=== PATIENT | female | born 1960 | race Caucasian/White ===

== ENCOUNTER 2017-01-28 12:48 | Inpatient (IN) | payer BC ==
[~2017-01-28] VITALS: Ht 165.1 cm; Wt 129.7 kg
[2017-01-28] MEDS ORDERED: SODIUM CHLORIDE 0.9% 1,000ML IVBOLUS ONE (14:00)
[2017-01-28] MEDS ORDERED: PIPERACILLIN/TAZO/PMX 3.375GM 50 ML IVPB ONE (14:00)
[2017-01-28] MEDS ORDERED: SODIUM CHLORIDE FLUSH 10ML SYR IVF ONE (14:00)
[2017-01-28] MEDS ORDERED: ONDANSETRON 2MG/ML, 2ML IVPush ONE (14:00)
[2017-01-28] MEDS ORDERED: VANCOMYCIN PER PHARMACY MC ONE (14:00)
[2017-01-28] MEDS ORDERED: LIDOCAINE 1%-EPI 1:100K, 20ML SQ ONE (14:00)
[2017-01-28 14:22] LABS: PH, VENOUS 7.332 pH (7.320-7.420)
[2017-01-28] MEDS ORDERED: VANCOMYCIN 1,700 MG in SODIUM CHLORIDE 0.9% 250 ML IV ONE (14:30)
[2017-01-28] MEDS ORDERED: MORPHINE SULFATE 4 MG/ML, 1ML ONE ×2 (14:35→17:43)
[2017-01-28] MEDS ORDERED: PIPERACILLIN/TAZO/PMX 3.375GM 50 ML ONE (14:35)
[2017-01-28] MEDS ORDERED: ONDANSETRON 2MG/ML, 2ML ONE (14:35)
[2017-01-28] MEDS: MORPHINE SULFATE 4 MG/ML, 1ML IVPush PRN ×3 (14:49→22:38)
[2017-01-28] MEDS ORDERED: SODIUM CHLORIDE 0.9%, 500ML IVBOLUS ONE (15:00)
[2017-01-28 15:03] LABS: BLOOD UREA NITROGEN 27 mg/dL (7-18)
[2017-01-28 15:08] LABS: ASPARTATE AMINO TRANSFERASE 10 U/L (15-37)
[2017-01-28] MEDS ORDERED: INSULIN REGULAR 100 UNITS/ML, 3ML VIAL IVPush ONE (15:30)
[2017-01-28] MEDS ORDERED: INSULIN REGULAR 100 UNITS/ML, 3ML VIAL SQ-INSULIN ONE (15:30)
[2017-01-28] MEDS ORDERED: OMNIPAQUE 350 MG/ML, 100ML BOTTLE ONE (15:47)
[2017-01-28] MEDS ORDERED: INSULIN REGULAR 100 UNITS/ML, 3ML VIAL ONE (16:43)
[2017-01-28] MEDS ORDERED: D5%-0.45NACL+KCL 20MEQ 1,000 ML IV SCH (17:33)
[2017-01-28] MEDS ORDERED: LABETALOL 5MG/ML, 20ML IV PRN (18:00)
[2017-01-28] MEDS ORDERED: GLUCAGON 1 MG IM PRN (18:00)
[2017-01-28] MEDS ORDERED: GUAIFENESIN/DM 200-20MG, 10ML UDC PO PRN (18:00)
[2017-01-28] MEDS ORDERED: ONDANSETRON 2MG/ML, 2ML IVP PRN (18:00)
[2017-01-28] MEDS ORDERED: ONDANSETRON ODT 4 MG PO PRN (18:00)
[2017-01-28] MEDS ORDERED: DEXTROSE 4 GM TAB.CHEW PO PRN (18:00)
[2017-01-28] MEDS ORDERED: DEXTROSE 50%, 50ML SYRINGE IVPush PRN (18:00)
[2017-01-28] MEDS ORDERED: VANCOMYCIN PER PHARMACY MC PRN (18:00)
[2017-01-28] MEDS ORDERED: POLYETHYLENE GLYCOL 17 GM PACKET PO PRN (18:00)
[2017-01-28 18:16] LABS: BLOOD UREA NITROGEN 23 mg/dL (7-18)
[2017-01-28] MEDS: SODIUM CHLORIDE 0.9% 1,000 ML IV SCH (18:33)
[2017-01-28 18:44] VITALS: BP 131/84
[2017-01-28] MEDS ORDERED: PHARMACOKINETIC MONITORING MC PRN (19:00)
[2017-01-28] MEDS ORDERED: PHARMACOKINETIC CONSULTATION MC ONE (19:00)
[2017-01-28] MEDS: VANCOMYCIN 2,000 MG in SODIUM CHLORIDE 0.9% 500 ML IV SCH ×2 (20:21→22:27)
[2017-01-28] MEDS: ENOXAPARIN 40 MG/0.4 ML SQ SCH (20:28)
[2017-01-28] MEDS: PIPERACILLIN/TAZO/PMX 3.375GM 50 ML IV SCH (20:28)
[2017-01-28] MEDS: SODIUM CHLORIDE FLUSH 10ML SYR IVF SCH (22:27)
[2017-01-28] MEDS: FAMOTIDINE 20 MG/2 ML IV SCH (22:27)
[2017-01-28] MEDS: INSULIN ASPART 100 UNITS/ML, PEN SQ-INSULIN SCH (22:28)
[2017-01-29] MEDS: MORPHINE SULFATE 4 MG/ML, 1ML IVPush PRN ×6 (02:23→21:29)
[2017-01-29] MEDS: PIPERACILLIN/TAZO/PMX 3.375GM 50 ML IV SCH ×4 (02:23→20:15)
[2017-01-29 03:41] VITALS: BP 144/75
[2017-01-29] MEDS: SODIUM CHLORIDE 0.9% 1,000 ML IV SCH ×3 (04:35→22:30)
[2017-01-29 06:25] LABS: ASPARTATE AMINO TRANSFERASE 7 U/L (15-37); BLOOD UREA NITROGEN 19 mg/dL (7-18)
[2017-01-29 07:31] VITALS: BP 162/81
[2017-01-29] MEDS ORDERED: INSULIN DETEMIR 100 UNITS/ML, PEN SQ-INSULIN SCH (08:00)
[2017-01-29] MEDS: INSULIN ASPART 100 UNITS/ML, PEN SQ-INSULIN SCH ×4 (08:19→21:12)
[2017-01-29] MEDS ORDERED: MAGNESIUM SULFATE PMX 2GM/50ML 50 ML IV ONE (08:30)
[2017-01-29] MEDS: FAMOTIDINE 20 MG/2 ML IV SCH ×2 (09:29→20:14)
[2017-01-29] MEDS: SENNA/DOCUSATE TABLET PO SCH (09:29)
[2017-01-29] MEDS: INSULIN DETEMIR 100 UNITS/ML, PEN SQ-INSULIN SCH ×2 (09:29→21:11)
[2017-01-29] MEDS: SODIUM CHLORIDE FLUSH 10ML SYR IVF SCH ×2 (09:30→21:10)
[2017-01-29] MEDS: VANCOMYCIN 2,000 MG in SODIUM CHLORIDE 0.9% 500 ML IV SCH ×2 (11:54→22:30)
[2017-01-29 12:45] VITALS: BP 140/81
[2017-01-29] MEDS: ENOXAPARIN 40 MG/0.4 ML SQ SCH (17:57)
[2017-01-29 19:41] VITALS: BP 160/83
[2017-01-29] MEDS: ACETAMINOPHEN 325 MG TABLET PO PRN (20:15)
[2017-01-30 01:58] VITALS: BP 140/83
[2017-01-30] MEDS: PIPERACILLIN/TAZO/PMX 3.375GM 50 ML IV SCH ×4 (02:01→19:25)
[2017-01-30 06:39] VITALS: BP 134/79
[2017-01-30] MEDS: MORPHINE SULFATE 4 MG/ML, 1ML IVPush PRN ×5 (08:12→23:18)
[2017-01-30] MEDS: ACETAMINOPHEN 325 MG TABLET PO PRN (08:12)
[2017-01-30] MEDS: SODIUM CHLORIDE 0.9% 1,000 ML IV SCH ×2 (08:12→21:20)
[2017-01-30] MEDS: FAMOTIDINE 20 MG/2 ML IV SCH ×2 (08:13→21:00)
[2017-01-30] MEDS: SENNA/DOCUSATE TABLET PO SCH (08:13)
[2017-01-30] MEDS: INSULIN ASPART 100 UNITS/ML, PEN SQ-INSULIN SCH ×4 (08:13→21:19)
[2017-01-30] MEDS: INSULIN DETEMIR 100 UNITS/ML, PEN SQ-INSULIN SCH ×2 (08:14→21:19)
[2017-01-30] MEDS: SODIUM CHLORIDE FLUSH 10ML SYR IVF SCH ×2 (08:14→21:20)
[2017-01-30 09:33] LABS: ASPARTATE AMINO TRANSFERASE 15 U/L (15-37); BLOOD UREA NITROGEN 14 mg/dL (7-18)
[2017-01-30 09:40] LABS: C-REACTIVE PROTEIN, QUANT > 19.00 mg/dL (0.02-0.49)
[2017-01-30] MEDS: VANCOMYCIN 2,000 MG in SODIUM CHLORIDE 0.9% 500 ML IV SCH (11:35)
[2017-01-30 13:53] VITALS: BP 149/61
[2017-01-30] MEDS: LINEZOLID PMX 600MG/300ML 300 ML IV SCH (15:21)
[2017-01-30] MEDS: ENOXAPARIN 40 MG/0.4 ML SQ SCH (16:34)
[2017-01-30 18:28] LABS: PATH.CAST-FLAG NOT PRESENT; SPERM-FLAG NOT PRESENT; SRC-FLAG NOT PRESENT; XTAL-FLAG NOT PRESENT; YLC-FLAG NOT PRESENT
[2017-01-30 20:38] VITALS: BP 159/84
[2017-01-31] MEDS: PIPERACILLIN/TAZO/PMX 3.375GM 50 ML IV SCH ×2 (02:17→08:03)
[2017-01-31] MEDS: MORPHINE SULFATE 4 MG/ML, 1ML IVPush PRN ×6 (02:18→21:18)
[2017-01-31 02:27] VITALS: BP 140/85
[2017-01-31] MEDS: LINEZOLID PMX 600MG/300ML 300 ML IV SCH (03:32)
[2017-01-31] MEDS: SODIUM CHLORIDE 0.9% 1,000 ML IV SCH ×5 (03:32→21:17)
[2017-01-31 05:37] LABS: BLOOD UREA NITROGEN 17 mg/dL (7-18)
[2017-01-31 05:41] LABS: ASPARTATE AMINO TRANSFERASE 17 U/L (15-37)
[2017-01-31 07:00] VITALS: BP 128/83
[2017-01-31] MEDS: FAMOTIDINE 20 MG/2 ML IV SCH ×2 (08:02→21:17)
[2017-01-31] MEDS: SENNA/DOCUSATE TABLET PO SCH (08:03)
[2017-01-31] MEDS: INSULIN ASPART 100 UNITS/ML, PEN SQ-INSULIN SCH ×4 (08:03→21:17)
[2017-01-31] MEDS: INSULIN DETEMIR 100 UNITS/ML, PEN SQ-INSULIN SCH ×2 (08:24→21:16)
[2017-01-31] MEDS ORDERED: PHARMACY MAY ADJ FOR RENAL FX MC PRN (09:00)
[2017-01-31] MEDS: SODIUM CHLORIDE FLUSH 10ML SYR IVF SCH ×2 (09:00→21:17)
[2017-01-31 12:35] VITALS: BP 138/90
[2017-01-31] MEDS: CEFTAROLINE 300 MG in SODIUM CHLORIDE 0.9% 100 ML IV SCH (13:55)
[2017-01-31] MEDS ORDERED: ERGOCALCIFEROL 50,000 UNIT CAPSULE PO SCH (17:00)
[2017-01-31 17:06] LABS: HGB A1C 14.8 %Hb (.)
[2017-01-31] MEDS ORDERED: ENOXAPARIN 30 MG/0.3 ML SQ SCH (18:00)
[2017-01-31 20:13] VITALS: BP 159/84
[2017-02-01] MEDS: CEFTAROLINE 300 MG in SODIUM CHLORIDE 0.9% 100 ML IV SCH ×2 (00:37→12:45)
[2017-02-01] MEDS: MORPHINE SULFATE 4 MG/ML, 1ML IVPush PRN ×4 (00:37→16:55)
[2017-02-01 02:32] VITALS: BP 167/99
[2017-02-01] MEDS: SODIUM CHLORIDE 0.9% 1,000 ML IV SCH ×4 (06:19→22:35)
[2017-02-01 06:52] VITALS: BP 147/86
[2017-02-01] MEDS: INSULIN ASPART 100 UNITS/ML, PEN SQ-INSULIN SCH ×4 (07:57→21:06)
[2017-02-01] MEDS: INSULIN DETEMIR 100 UNITS/ML, PEN SQ-INSULIN SCH ×2 (08:44→21:06)
[2017-02-01] MEDS: SODIUM CHLORIDE FLUSH 10ML SYR IVF SCH ×2 (08:44→21:05)
[2017-02-01] MEDS: SENNA/DOCUSATE TABLET PO SCH (08:45)
[2017-02-01] MEDS ORDERED: FAMOTIDINE 20 MG TABLET PO SCH (09:00)
[2017-02-01 10:32] LABS: ASPARTATE AMINO TRANSFERASE 11 U/L (15-37); BLOOD UREA NITROGEN 16 mg/dL (7-18)
[2017-02-01] MEDS: HYDROcodone/APAP 5/325 TABLET PO PRN ×2 (12:45→21:05)
[2017-02-01 12:53] VITALS: BP 155/84
[2017-02-01 20:03] VITALS: BP 134/78
[2017-02-02] MEDS: CEFTAROLINE 300 MG in SODIUM CHLORIDE 0.9% 100 ML IV SCH ×2 (02:21→14:39)
[2017-02-02] MEDS: HYDROcodone/APAP 5/325 TABLET PO PRN ×4 (02:24→23:07)
[2017-02-02] MEDS: SODIUM CHLORIDE 0.9% 1,000 ML IV SCH ×4 (02:24→23:30)
[2017-02-02 02:38] VITALS: BP 148/74
[2017-02-02 05:30] LABS: ASPARTATE AMINO TRANSFERASE 9 U/L (15-37); BLOOD UREA NITROGEN 16 mg/dL (7-18)
[2017-02-02] MEDS: MORPHINE SULFATE 4 MG/ML, 1ML IVPush PRN ×3 (06:04→16:26)
[2017-02-02 07:31] VITALS: BP 146/75
[2017-02-02] MEDS: INSULIN DETEMIR 100 UNITS/ML, PEN SQ-INSULIN SCH ×2 (08:33→23:08)
[2017-02-02] MEDS: INSULIN ASPART 100 UNITS/ML, PEN SQ-INSULIN SCH ×4 (08:34→23:08)
[2017-02-02] MEDS: SODIUM CHLORIDE FLUSH 10ML SYR IVF SCH ×2 (08:38→23:09)
[2017-02-02] MEDS: SENNA/DOCUSATE TABLET PO SCH (08:44)
[2017-02-02] MEDS: FAMOTIDINE 20 MG TABLET PO SCH (08:44)
[2017-02-02] MEDS: HEPARIN 5,000 UNITS/ML, 1ML SQ SCH ×2 (10:34→18:11)
[2017-02-02] MEDS: LIDOCAINE/PRILOCAINE CRM W/TEG 5GM TP PRN (11:26)
[2017-02-02 14:43] VITALS: BP 132/71
[2017-02-02] MEDS: AMPICILLIN/SULBACTAM 3 GM in SODIUM CHLORIDE 0.9% 100 ML IV SCH ×2 (16:07→23:30)
[2017-02-02 20:40] VITALS: BP 132/71
[2017-02-03] MEDS: HEPARIN 5,000 UNITS/ML, 1ML SQ SCH ×3 (03:29→20:04)
[2017-02-03] MEDS: HYDROcodone/APAP 5/325 TABLET PO PRN ×5 (03:42→20:04)
[2017-02-03 04:12] VITALS: BP 142/69
[2017-02-03] MEDS: SODIUM CHLORIDE 0.9% 1,000 ML IV SCH ×3 (05:20→15:03)
[2017-02-03 06:49] LABS: BLOOD UREA NITROGEN 18 mg/dL (7-18); TOTAL IRON BINDING CAPACITY 114 mcg/dL (250-450)
[2017-02-03] MEDS: FAMOTIDINE 20 MG TABLET PO SCH (07:46)
[2017-02-03] MEDS: INSULIN ASPART 100 UNITS/ML, PEN SQ-INSULIN SCH ×4 (07:47→21:00)
[2017-02-03] MEDS: ERGOCALCIFEROL 50,000 UNIT CAPSULE PO SCH (07:47)
[2017-02-03] MEDS: SODIUM CHLORIDE FLUSH 10ML SYR IVF SCH ×2 (07:47→21:28)
[2017-02-03] MEDS: SENNA/DOCUSATE TABLET PO SCH (07:48)
[2017-02-03] MEDS: INSULIN DETEMIR 100 UNITS/ML, PEN SQ-INSULIN SCH ×2 (07:48→20:21)
[2017-02-03 08:09] VITALS: BP 158/76
[2017-02-03] MEDS ORDERED: ALBUMIN HUMAN 25% 100 ML IV ONE (08:30)
[2017-02-03] MEDS: AMPICILLIN/SULBACTAM 3 GM in SODIUM CHLORIDE 0.9% 100 ML IV SCH ×2 (08:34→20:00)
[2017-02-03 12:35] VITALS: BP 144/87
[2017-02-03] MEDS: MORPHINE SULFATE 4 MG/ML, 1ML IVPush PRN (16:36)
[2017-02-03 19:00] VITALS: BP 134/80
[2017-02-04] MEDS: HYDROcodone/APAP 5/325 TABLET PO PRN ×6 (00:32→22:08)
[2017-02-04] MEDS: SODIUM CHLORIDE 0.9% 1,000 ML IV SCH ×4 (01:20→17:00)
[2017-02-04] MEDS: MORPHINE SULFATE 4 MG/ML, 1ML IVPush PRN ×2 (01:32→10:03)
[2017-02-04 01:43] VITALS: BP 163/84
[2017-02-04] MEDS: HEPARIN 5,000 UNITS/ML, 1ML SQ SCH ×3 (04:30→21:21)
[2017-02-04 06:30] LABS: ASPARTATE AMINO TRANSFERASE 14 U/L (15-37); BLOOD UREA NITROGEN 20 mg/dL (7-18)
[2017-02-04 06:39] VITALS: BP 149/78
[2017-02-04] MEDS: INSULIN ASPART 100 UNITS/ML, PEN SQ-INSULIN SCH ×4 (07:00→21:00)
[2017-02-04] MEDS: AMPICILLIN/SULBACTAM 3 GM in SODIUM CHLORIDE 0.9% 100 ML IV SCH ×2 (08:04→21:18)
[2017-02-04] MEDS: INSULIN DETEMIR 100 UNITS/ML, PEN SQ-INSULIN SCH ×2 (08:06→21:31)
[2017-02-04] MEDS: SODIUM CHLORIDE FLUSH 10ML SYR IVF SCH ×2 (09:00→21:22)
[2017-02-04] MEDS: SENNA/DOCUSATE TABLET PO SCH (09:00)
[2017-02-04] MEDS: LIDOCAINE/PRILOCAINE CRM W/TEG 5GM TP PRN (10:03)
[2017-02-04] MEDS: FAMOTIDINE 20 MG TABLET PO SCH (10:10)
[2017-02-04 12:45] VITALS: BP 174/82
[2017-02-04 21:04] VITALS: BP 167/85
[2017-02-05] MEDS: SODIUM CHLORIDE 0.9% 1,000 ML IV SCH ×3 (02:45→18:28)
[2017-02-05] MEDS: HYDROcodone/APAP 5/325 TABLET PO PRN ×5 (02:45→22:28)
[2017-02-05 02:50] VITALS: BP 193/107
[2017-02-05 03:40] VITALS: BP 187/101
[2017-02-05] MEDS: LABETALOL 20 MG/4 ML IV PRN ×2 (03:45→22:51)
[2017-02-05] MEDS: HEPARIN 5,000 UNITS/ML, 1ML SQ SCH ×3 (04:07→20:37)
[2017-02-05 06:10] LABS: BLOOD UREA NITROGEN 22 mg/dL (7-18)
[2017-02-05 06:20] LABS: ASPARTATE AMINO TRANSFERASE 19 U/L (15-37)
[2017-02-05] MEDS: INSULIN ASPART 100 UNITS/ML, PEN SQ-INSULIN SCH ×4 (07:00→20:34)
[2017-02-05] MEDS: INSULIN DETEMIR 100 UNITS/ML, PEN SQ-INSULIN SCH ×2 (08:26→20:49)
[2017-02-05] MEDS: AMPICILLIN/SULBACTAM 3 GM in SODIUM CHLORIDE 0.9% 100 ML IV SCH ×2 (08:26→20:15)
[2017-02-05] MEDS: SENNA/DOCUSATE TABLET PO SCH (09:00)
[2017-02-05] MEDS: FAMOTIDINE 20 MG TABLET PO SCH (09:00)
[2017-02-05] MEDS: SODIUM CHLORIDE FLUSH 10ML SYR IVF SCH ×2 (11:51→20:35)
[2017-02-05 14:12] VITALS: BP 184/85
[2017-02-05] MEDS: MORPHINE SULFATE 4 MG/ML, 1ML IVPush PRN (16:31)
[2017-02-05] MEDS: LOPERAMIDE 2 MG CAPSULE PO PRN (18:26)
[2017-02-05 20:16] VITALS: BP 185/83
[2017-02-05] MEDS: LIDOCAINE/PRILOCAINE CRM W/TEG 5GM TP PRN (20:38)
[2017-02-05 22:23] VITALS: BP 182/81
[2017-02-06] MEDS: SODIUM CHLORIDE 0.9% 1,000 ML IV SCH ×3 (03:21→18:49)
[2017-02-06 03:22] VITALS: BP 171/81
[2017-02-06] MEDS: HYDROcodone/APAP 5/325 TABLET PO PRN ×5 (04:31→20:39)
[2017-02-06] MEDS: HEPARIN 5,000 UNITS/ML, 1ML SQ SCH ×3 (04:31→20:32)
[2017-02-06 05:27] LABS: PATH.CAST-FLAG NOT PRESENT; SPERM-FLAG NOT PRESENT; SRC-FLAG NOT PRESENT; XTAL-FLAG NOT PRESENT; YLC-FLAG NOT PRESENT
[2017-02-06] MEDS: INSULIN ASPART 100 UNITS/ML, PEN SQ-INSULIN SCH ×4 (07:00→20:35)
[2017-02-06 07:35] VITALS: BP 181/78
[2017-02-06] MEDS: AMPICILLIN/SULBACTAM 3 GM in SODIUM CHLORIDE 0.9% 100 ML IV SCH ×2 (08:19→20:10)
[2017-02-06] MEDS: ERGOCALCIFEROL 50,000 UNIT CAPSULE PO SCH (08:21)
[2017-02-06] MEDS: SODIUM CHLORIDE FLUSH 10ML SYR IVF SCH ×2 (08:21→20:11)
[2017-02-06] MEDS: FAMOTIDINE 20 MG TABLET PO SCH (08:21)
[2017-02-06] MEDS: INSULIN DETEMIR 100 UNITS/ML, PEN SQ-INSULIN SCH ×2 (08:26→21:47)
[2017-02-06] MEDS: LABETALOL 20 MG/4 ML IV PRN ×2 (08:28→21:46)
[2017-02-06 09:51] LABS: BLOOD UREA NITROGEN 25 mg/dL (7-18)
[2017-02-06 11:00] VITALS: BP 174/80
[2017-02-06 13:08] VITALS: BP 182/93
[2017-02-06] MEDS ORDERED: AMLODIPINE 5 MG TABLET PO ONE (14:00)
[2017-02-06] MEDS: LOPERAMIDE 2 MG CAPSULE PO PRN (14:49)
[2017-02-06 15:43] VITALS: BP 167/85
[2017-02-06] MEDS: LIDOCAINE/PRILOCAINE CRM W/TEG 5GM TP PRN ×2 (16:49→20:41)
[2017-02-06 21:45] VITALS: BP 182/103
[2017-02-07] MEDS: SODIUM CHLORIDE 0.9% 1,000 ML IV SCH ×2 (02:10→10:53)
[2017-02-07 02:13] VITALS: BP 177/89
[2017-02-07] MEDS: HYDROcodone/APAP 5/325 TABLET PO PRN ×5 (04:07→20:27)
[2017-02-07] MEDS: HEPARIN 5,000 UNITS/ML, 1ML SQ SCH ×3 (04:07→20:21)
[2017-02-07] MEDS: INSULIN ASPART 100 UNITS/ML, PEN SQ-INSULIN SCH ×4 (06:45→20:21)
[2017-02-07 07:12] VITALS: BP 173/83
[2017-02-07] MEDS: AMPICILLIN/SULBACTAM 3 GM in SODIUM CHLORIDE 0.9% 100 ML IV SCH ×2 (08:20→20:20)
[2017-02-07] MEDS: SODIUM CHLORIDE FLUSH 10ML SYR IVF SCH ×2 (08:21→20:21)
[2017-02-07] MEDS: INSULIN DETEMIR 100 UNITS/ML, PEN SQ-INSULIN SCH ×2 (08:21→20:40)
[2017-02-07] MEDS: FAMOTIDINE 20 MG TABLET PO SCH (08:22)
[2017-02-07] MEDS ORDERED: AMLODIPINE 5 MG TABLET PO SCH (09:00)
[2017-02-07] MEDS: LOPERAMIDE 2 MG CAPSULE PO PRN (10:54)
[2017-02-07 13:37] VITALS: BP 169/82
[2017-02-07 19:52] VITALS: BP 175/82
[2017-02-07] MEDS: AMLODIPINE 5 MG TABLET PO SCH (20:20)
[2017-02-07] MEDS: LIDOCAINE/PRILOCAINE CRM W/TEG 5GM TP PRN (20:27)
[2017-02-07] MEDS ORDERED: SODIUM CHLORIDE 0.9% 1,000 ML IV SCH (22:00)
[2017-02-08] MEDS: HYDROcodone/APAP 5/325 TABLET PO PRN ×6 (00:48→22:46)
[2017-02-08 02:26] VITALS: BP 176/84
[2017-02-08] MEDS: HEPARIN 5,000 UNITS/ML, 1ML SQ SCH ×3 (04:32→21:09)
[2017-02-08] MEDS: INSULIN ASPART 100 UNITS/ML, PEN SQ-INSULIN SCH ×4 (06:32→21:00)
[2017-02-08 06:54] VITALS: BP 158/80
[2017-02-08] MEDS ORDERED: SODIUM CHLORIDE 0.9% 1,000 ML IV SCH (08:13)
[2017-02-08] MEDS: FAMOTIDINE 20 MG TABLET PO SCH (09:17)
[2017-02-08] MEDS: AMLODIPINE 5 MG TABLET PO SCH ×2 (09:17→21:11)
[2017-02-08] MEDS: AMPICILLIN/SULBACTAM 3 GM in SODIUM CHLORIDE 0.9% 100 ML IV SCH ×2 (09:17→21:09)
[2017-02-08] MEDS: INSULIN DETEMIR 100 UNITS/ML, PEN SQ-INSULIN SCH ×2 (09:18→21:56)
[2017-02-08] MEDS: LOPERAMIDE 2 MG CAPSULE PO PRN (09:19)
[2017-02-08] MEDS: SODIUM CHLORIDE FLUSH 10ML SYR IVF SCH ×2 (09:42→21:00)
[2017-02-08 11:21] LABS: BLOOD UREA NITROGEN 23 mg/dL (7-18)
[2017-02-08 14:18] VITALS: BP 183/97
[2017-02-08] MEDS: LABETALOL 20 MG/4 ML IV PRN (14:46)
[2017-02-08 15:14] VITALS: BP 162/80
[2017-02-08] MEDS ORDERED: CALCIUM CARBONATE 500 MG TAB.CHEW PO PRN (15:30)
[2017-02-08] MEDS ORDERED: ALBUMIN HUMAN 25% 100 ML IV SCH (15:30)
[2017-02-08] MEDS ORDERED: FUROSEMIDE 20 MG/2 ML IV ONE (16:00)
[2017-02-08] MEDS: CALCIUM CARBONATE 500 MG TAB.CHEW PO SCH ×2 (16:46→21:11)
[2017-02-08 19:56] VITALS: BP 179/96
[2017-02-08 21:06] VITALS: BP 169/76
[2017-02-08] MEDS: LIDOCAINE/PRILOCAINE CRM W/TEG 5GM TP PRN (21:58)
[2017-02-09 01:55] VITALS: BP 157/79
[2017-02-09] MEDS: HEPARIN 5,000 UNITS/ML, 1ML SQ SCH ×3 (05:02→20:47)
[2017-02-09] MEDS: HYDROcodone/APAP 5/325 TABLET PO PRN ×5 (05:14→21:42)
[2017-02-09 06:01] LABS: BLOOD UREA NITROGEN 24 mg/dL (7-18)
[2017-02-09 06:09] LABS: ASPARTATE AMINO TRANSFERASE 11 U/L (15-37)
[2017-02-09] MEDS: INSULIN ASPART 100 UNITS/ML, PEN SQ-INSULIN SCH ×4 (06:23→20:48)
[2017-02-09 07:34] VITALS: BP 172/89
[2017-02-09] MEDS: AMPICILLIN/SULBACTAM 3 GM in SODIUM CHLORIDE 0.9% 100 ML IV SCH ×2 (07:53→20:47)
[2017-02-09] MEDS: SODIUM CHLORIDE FLUSH 10ML SYR IVF SCH ×2 (07:59→20:47)
[2017-02-09] MEDS: INSULIN DETEMIR 100 UNITS/ML, PEN SQ-INSULIN SCH ×2 (08:00→20:48)
[2017-02-09] MEDS: FAMOTIDINE 20 MG TABLET PO SCH (08:01)
[2017-02-09] MEDS: AMLODIPINE 5 MG TABLET PO SCH ×2 (08:01→20:47)
[2017-02-09] MEDS: CALCIUM CARBONATE 500 MG TAB.CHEW PO SCH (08:01)
[2017-02-09] MEDS: ERGOCALCIFEROL 50,000 UNIT CAPSULE PO SCH (08:01)
[2017-02-09] MEDS: LOPERAMIDE 2 MG CAPSULE PO PRN (08:04)
[2017-02-09] MEDS ORDERED: ALBUMIN HUMAN 25% 100 ML IV ONE (10:00)
[2017-02-09] MEDS: FUROSEMIDE 20 MG/2 ML IV SCH (12:55)
[2017-02-09 13:15] VITALS: BP 157/79
[2017-02-09 20:04] VITALS: BP 188/88
[2017-02-09] MEDS: CALCIUM CARBONATE 500 MG TAB.CHEW PO PRN (20:56)
[2017-02-09] MEDS: LIDOCAINE/PRILOCAINE CRM W/TEG 5GM TP PRN (21:42)
[2017-02-09] MEDS: LABETALOL 20 MG/4 ML IV PRN (21:50)
[2017-02-09 23:17] VITALS: BP 154/80
[2017-02-10 04:36] VITALS: BP 166/79
[2017-02-10] MEDS: HYDROcodone/APAP 5/325 TABLET PO PRN ×4 (04:41→20:15)
[2017-02-10] MEDS: HEPARIN 5,000 UNITS/ML, 1ML SQ SCH ×3 (04:41→20:14)
[2017-02-10] MEDS: LOPERAMIDE 2 MG CAPSULE PO PRN (04:57)
[2017-02-10 05:52] LABS: BLOOD UREA NITROGEN 23 mg/dL (7-18)
[2017-02-10] MEDS: INSULIN ASPART 100 UNITS/ML, PEN SQ-INSULIN SCH ×4 (07:51→21:00)
[2017-02-10 07:55] VITALS: BP 169/77
[2017-02-10] MEDS: AMPICILLIN/SULBACTAM 3 GM in SODIUM CHLORIDE 0.9% 100 ML IV SCH ×2 (09:41→20:15)
[2017-02-10] MEDS: INSULIN DETEMIR 100 UNITS/ML, PEN SQ-INSULIN SCH ×2 (09:42→20:14)
[2017-02-10] MEDS: SODIUM CHLORIDE FLUSH 10ML SYR IVF SCH ×2 (09:42→20:17)
[2017-02-10] MEDS: AMLODIPINE 5 MG TABLET PO SCH ×2 (09:47→22:08)
[2017-02-10] MEDS: ALBUMIN HUMAN 25% 100 ML IV SCH (11:08)
[2017-02-10] MEDS: FUROSEMIDE 20 MG/2 ML IV SCH (12:35)
[2017-02-10] MEDS: LIDOCAINE/PRILOCAINE CRM W/TEG 5GM TP PRN (14:19)
[2017-02-10 15:24] VITALS: BP 169/80
[2017-02-10 19:16] VITALS: BP 171/85
[2017-02-10] MEDS: CALCIUM CARBONATE 500 MG TAB.CHEW PO PRN (20:15)
[2017-02-10] MEDS: ERTAPENEM 0.5 GM in SODIUM CHLORIDE 0.9% 50 ML IV SCH (22:09)
[2017-02-11] MEDS: HYDROcodone/APAP 5/325 TABLET PO PRN ×6 (00:44→23:58)
[2017-02-11 01:38] VITALS: BP_SYST 177; BP_SYST 178; BP_DIAS 86; BP_DIAS 87
[2017-02-11] MEDS: HEPARIN 5,000 UNITS/ML, 1ML SQ SCH ×3 (04:12→20:38)
[2017-02-11 06:26] LABS: BLOOD UREA NITROGEN 25 mg/dL (7-18)
[2017-02-11] MEDS: INSULIN ASPART 100 UNITS/ML, PEN SQ-INSULIN SCH ×4 (07:00→21:13)
[2017-02-11 07:06] LABS: HEPATITIS C VIRUS ANTIBODY Nonreactive (Nonreactive)
[2017-02-11 08:00] VITALS: BP 166/79
[2017-02-11] MEDS ORDERED: POTASSIUM CHLORIDE 20 MEQ TAB.ER.PRT PO ONE (09:00)
[2017-02-11] MEDS: AMLODIPINE 5 MG TABLET PO SCH ×2 (09:27→20:37)
[2017-02-11] MEDS: FUROSEMIDE 20 MG/2 ML IV SCH ×2 (09:28→10:11)
[2017-02-11] MEDS: ALBUMIN HUMAN 25% 100 ML IV SCH (09:28)
[2017-02-11] MEDS: SODIUM CHLORIDE FLUSH 10ML SYR IVF SCH ×2 (09:29→20:31)
[2017-02-11] MEDS: INSULIN DETEMIR 100 UNITS/ML, PEN SQ-INSULIN SCH ×2 (09:29→21:13)
[2017-02-11] MEDS: CALCIUM CARBONATE 500 MG TAB.CHEW PO PRN (13:32)
[2017-02-11 14:00] VITALS: BP 184/83
[2017-02-11 18:47] VITALS: BP 166/84
[2017-02-11] MEDS: ERTAPENEM 0.5 GM in SODIUM CHLORIDE 0.9% 50 ML IV SCH (21:12)
[2017-02-12 02:54] VITALS: BP 177/90
[2017-02-12] MEDS: HYDROcodone/APAP 5/325 TABLET PO PRN ×5 (03:56→21:51)
[2017-02-12] MEDS: HEPARIN 5,000 UNITS/ML, 1ML SQ SCH ×3 (03:57→21:00)
[2017-02-12] MEDS: INSULIN ASPART 100 UNITS/ML, PEN SQ-INSULIN SCH ×4 (06:26→21:08)
[2017-02-12 08:00] VITALS: BP 176/83
[2017-02-12] MEDS: AMLODIPINE 5 MG TABLET PO SCH ×2 (09:00→21:00)
[2017-02-12] MEDS: ALBUMIN HUMAN 25% 100 ML IV SCH (09:00)
[2017-02-12] MEDS: INSULIN DETEMIR 100 UNITS/ML, PEN SQ-INSULIN SCH ×2 (09:02→21:08)
[2017-02-12] MEDS: SODIUM CHLORIDE FLUSH 10ML SYR IVF SCH ×2 (09:02→21:00)
[2017-02-12] MEDS: FUROSEMIDE 20 MG/2 ML IV SCH (12:51)
[2017-02-12] MEDS: CALCIUM CARBONATE 500 MG TAB.CHEW PO PRN ×2 (12:54→21:14)
[2017-02-12 14:00] VITALS: BP 156/63
[2017-02-12 15:01] LABS: ANA SCREEN POSITIVE (Negative)
[2017-02-12 19:39] VITALS: BP 156/73
[2017-02-12] MEDS: ERTAPENEM 0.5 GM in SODIUM CHLORIDE 0.9% 50 ML IV SCH (21:00)
[2017-02-13 02:43] VITALS: BP 143/71
[2017-02-13] MEDS: HYDROcodone/APAP 5/325 TABLET PO PRN ×5 (03:58→21:15)
[2017-02-13] MEDS: HEPARIN 5,000 UNITS/ML, 1ML SQ SCH ×3 (03:58→21:23)
[2017-02-13] MEDS: INSULIN ASPART 100 UNITS/ML, PEN SQ-INSULIN SCH ×4 (06:21→21:22)
[2017-02-13 08:00] VITALS: BP 138/73
[2017-02-13] MEDS: AMLODIPINE 5 MG TABLET PO SCH ×2 (08:33→21:16)
[2017-02-13] MEDS: ERGOCALCIFEROL 50,000 UNIT CAPSULE PO SCH (08:33)
[2017-02-13] MEDS: INSULIN DETEMIR 100 UNITS/ML, PEN SQ-INSULIN SCH ×2 (08:36→21:30)
[2017-02-13] MEDS: SODIUM CHLORIDE FLUSH 10ML SYR IVF SCH ×2 (10:00→21:15)
[2017-02-13] MEDS: ALBUMIN HUMAN 25% 100 ML IV SCH (10:35)
[2017-02-13] MEDS: CALCIUM CARBONATE 500 MG TAB.CHEW PO PRN ×2 (10:39→16:08)
[2017-02-13 11:23] LABS: BLOOD UREA NITROGEN 26 mg/dL (7-18)
[2017-02-13] MEDS: FUROSEMIDE 20 MG/2 ML IV SCH (12:23)
[2017-02-13 13:06] LABS: UR ALBUMIN 64.9 % (.); UR ALPHA-1-GLOBULIN 1.9 % (.); UR ALPHA-2-GLOBULIN 4.9 % (.); UR BETA GLOBULIN 8.4 % (.); UR M-SPIKE % Not Observed % (Not Observed)
[2017-02-13 14:07] LABS: PROTEINASE 3 (PR-3) AB <3.5 U/mL (0.0-3.5)
[2017-02-13 14:40] VITALS: BP 152/80
[2017-02-13] MEDS: LIDOCAINE/PRILOCAINE CRM W/TEG 5GM TP PRN (16:04)
[2017-02-13 19:27] VITALS: BP 131/75
[2017-02-13] MEDS: ERTAPENEM 0.5 GM in SODIUM CHLORIDE 0.9% 50 ML IV SCH (21:15)
[2017-02-14 01:00] VITALS: BP 148/71
[2017-02-14] MEDS: HYDROcodone/APAP 5/325 TABLET PO PRN ×6 (01:17→23:05)
[2017-02-14] MEDS: HEPARIN 5,000 UNITS/ML, 1ML SQ SCH ×3 (06:15→22:59)
[2017-02-14 06:34] VITALS: BP 140/71
[2017-02-14] MEDS: INSULIN ASPART 100 UNITS/ML, PEN SQ-INSULIN SCH ×4 (06:57→20:55)
[2017-02-14] MEDS: INSULIN DETEMIR 100 UNITS/ML, PEN SQ-INSULIN SCH ×2 (09:05→22:59)
[2017-02-14] MEDS: AMLODIPINE 5 MG TABLET PO SCH ×2 (09:05→20:55)
[2017-02-14] MEDS: SODIUM CHLORIDE FLUSH 10ML SYR IVF SCH ×2 (09:05→20:55)
[2017-02-14] MEDS: ALBUMIN HUMAN 25% 100 ML IV SCH (09:05)
[2017-02-14] MEDS: FUROSEMIDE 20 MG/2 ML IV SCH (11:09)
[2017-02-14 13:12] VITALS: BP 146/75
[2017-02-14] MEDS: LIDOCAINE/PRILOCAINE CRM W/TEG 5GM TP PRN (15:02)
[2017-02-14 18:23] VITALS: BP 134/62
[2017-02-14] MEDS: ERTAPENEM 0.5 GM in SODIUM CHLORIDE 0.9% 50 ML IV SCH (20:55)
[2017-02-15 01:40] VITALS: BP 144/75
[2017-02-15] MEDS: HYDROcodone/APAP 5/325 TABLET PO PRN ×4 (05:26→20:49)
[2017-02-15] MEDS: HEPARIN 5,000 UNITS/ML, 1ML SQ SCH ×3 (05:41→21:24)
[2017-02-15 06:02] LABS: ASPARTATE AMINO TRANSFERASE 12 U/L (15-37); BLOOD UREA NITROGEN 26 mg/dL (7-18)
[2017-02-15] MEDS: INSULIN ASPART 100 UNITS/ML, PEN SQ-INSULIN SCH ×4 (07:00→21:24)
[2017-02-15 08:16] VITALS: BP 129/73
[2017-02-15] MEDS: ALBUMIN HUMAN 25% 100 ML IV SCH (09:36)
[2017-02-15] MEDS: FUROSEMIDE 20 MG/2 ML IV SCH (09:37)
[2017-02-15] MEDS: AMLODIPINE 5 MG TABLET PO SCH ×3 (09:38→21:31)
[2017-02-15] MEDS: INSULIN DETEMIR 100 UNITS/ML, PEN SQ-INSULIN SCH ×2 (09:38→21:24)
[2017-02-15] MEDS: SODIUM CHLORIDE FLUSH 10ML SYR IVF SCH ×2 (09:39→21:25)
[2017-02-15 14:13] VITALS: BP 147/82
[2017-02-15 20:02] VITALS: BP 158/84
[2017-02-15] MEDS: ERTAPENEM 0.5 GM in SODIUM CHLORIDE 0.9% 50 ML IV SCH (20:49)
[2017-02-16 02:12] VITALS: BP 146/76
[2017-02-16] MEDS: HYDROcodone/APAP 5/325 TABLET PO PRN ×5 (02:20→22:32)
[2017-02-16 05:30] VITALS: BP 132/73
[2017-02-16] MEDS: HEPARIN 5,000 UNITS/ML, 1ML SQ SCH ×3 (05:30→21:46)
[2017-02-16 06:01] LABS: ASPARTATE AMINO TRANSFERASE 12 U/L (15-37); BLOOD UREA NITROGEN 26 mg/dL (7-18)
[2017-02-16 07:00] VITALS: BP 146/73
[2017-02-16] MEDS: INSULIN ASPART 100 UNITS/ML, PEN SQ-INSULIN SCH ×4 (08:33→20:24)
[2017-02-16] MEDS: INSULIN DETEMIR 100 UNITS/ML, PEN SQ-INSULIN SCH ×2 (08:33→20:25)
[2017-02-16] MEDS: ALBUMIN HUMAN 25% 100 ML IV SCH (09:32)
[2017-02-16] MEDS: AMLODIPINE 5 MG TABLET PO SCH ×2 (09:33→20:24)
[2017-02-16] MEDS: ERGOCALCIFEROL 50,000 UNIT CAPSULE PO SCH (09:33)
[2017-02-16] MEDS: SODIUM CHLORIDE FLUSH 10ML SYR IVF SCH ×2 (09:33→21:48)
[2017-02-16] MEDS: ERTAPENEM 1 GM in SODIUM CHLORIDE 0.9% 50 ML IV SCH (11:26)
[2017-02-16] MEDS: FUROSEMIDE 20 MG/2 ML IV SCH (11:26)
[2017-02-16 12:06] LABS: A/G RATIO 0.9 (0.7-1.7); ALBUMIN 2.6 g/dL (2.9-4.4); ALPHA-1-GLOBULIN 0.3 g/dL (0.0-0.4); BETA GLOBULIN 0.9 g/dL (0.7-1.3); IMMUNOGLOBULIN A 266 mg/dL (87-352); IMMUNOGLOBULIN G 968 mg/dL (700-1600); IMMUNOGLOBULIN M 78 mg/dL (26-217); PROTEIN TOTAL 5.7 g/dL (6.0-8.5)
[2017-02-16 14:17] VITALS: BP 137/72
[2017-02-16 19:20] VITALS: BP 119/56
[2017-02-16] MEDS: ERTAPENEM 0.5 GM in SODIUM CHLORIDE 0.9% 50 ML IV SCH (20:24)
[2017-02-17 02:00] VITALS: BP 113/62
[2017-02-17] MEDS: HYDROcodone/APAP 5/325 TABLET PO PRN ×5 (03:10→21:39)
[2017-02-17] MEDS: HEPARIN 5,000 UNITS/ML, 1ML SQ SCH ×3 (06:23→23:09)
[2017-02-17 07:18] VITALS: BP 107/63
[2017-02-17] MEDS: INSULIN DETEMIR 100 UNITS/ML, PEN SQ-INSULIN SCH ×2 (07:49→23:08)
[2017-02-17] MEDS: INSULIN ASPART 100 UNITS/ML, PEN SQ-INSULIN SCH ×4 (07:49→23:08)
[2017-02-17] MEDS: AMLODIPINE 5 MG TABLET PO SCH ×2 (08:58→23:09)
[2017-02-17] MEDS: SODIUM CHLORIDE FLUSH 10ML SYR IVF SCH ×2 (08:58→23:09)
[2017-02-17] MEDS: ALBUMIN HUMAN 25% 100 ML IV SCH (08:58)
[2017-02-17] MEDS: ERTAPENEM 1 GM in SODIUM CHLORIDE 0.9% 50 ML IV SCH (10:17)
[2017-02-17 10:54] LABS: BLOOD UREA NITROGEN 28 mg/dL (7-18)
[2017-02-17] MEDS: FUROSEMIDE 40 MG TABLET PO SCH (11:24)
[2017-02-17 12:57] VITALS: BP 143/74
[2017-02-17 18:33] VITALS: BP 127/60
[2017-02-18] MEDS: HYDROcodone/APAP 5/325 TABLET PO PRN ×5 (01:28→19:55)
[2017-02-18 02:31] VITALS: BP 128/59
[2017-02-18 06:27] VITALS: BP 105/61
[2017-02-18] MEDS: HEPARIN 5,000 UNITS/ML, 1ML SQ SCH ×3 (06:31→22:00)
[2017-02-18] MEDS: INSULIN ASPART 100 UNITS/ML, PEN SQ-INSULIN SCH ×4 (06:40→21:00)
[2017-02-18 07:06] LABS: BLOOD UREA NITROGEN 30 mg/dL (7-18)
[2017-02-18] MEDS ORDERED: FUROSEMIDE 40 MG TABLET PO SCH (09:00)
[2017-02-18] MEDS: AMLODIPINE 5 MG TABLET PO SCH ×2 (09:00→21:00)
[2017-02-18] MEDS: INSULIN DETEMIR 100 UNITS/ML, PEN SQ-INSULIN SCH ×2 (09:01→21:00)
[2017-02-18] MEDS: SODIUM CHLORIDE FLUSH 10ML SYR IVF SCH ×2 (09:01→21:00)
[2017-02-18] MEDS: FUROSEMIDE 40 MG TABLET PO SCH (09:01)
[2017-02-18] MEDS: LIDOCAINE/PRILOCAINE CRM W/TEG 5GM TP PRN (09:02)
[2017-02-18] MEDS: ERTAPENEM 1 GM in SODIUM CHLORIDE 0.9% 50 ML IV SCH (10:51)
[2017-02-18] MEDS ORDERED: PNEUMOCOCCAL 23 VACCINE IM-VACC ONE (11:00)
[2017-02-18 12:55] VITALS: BP 144/70
[2017-02-18 19:03] VITALS: BP 129/61
[2017-02-19 02:33] VITALS: BP 138/70
[2017-02-19 06:38] VITALS: BP 142/67
[2017-02-19] MEDS: INSULIN ASPART 100 UNITS/ML, PEN SQ-INSULIN SCH ×4 (06:39→20:59)
[2017-02-19] MEDS: HEPARIN 5,000 UNITS/ML, 1ML SQ SCH ×3 (06:46→22:11)
[2017-02-19] MEDS: HYDROcodone/APAP 5/325 TABLET PO PRN ×4 (06:46→20:05)
[2017-02-19] MEDS: INSULIN DETEMIR 100 UNITS/ML, PEN SQ-INSULIN SCH ×2 (08:05→20:59)
[2017-02-19] MEDS: AMLODIPINE 5 MG TABLET PO SCH ×2 (08:05→20:45)
[2017-02-19] MEDS: FUROSEMIDE 40 MG TABLET PO SCH (08:06)
[2017-02-19] MEDS: SODIUM CHLORIDE FLUSH 10ML SYR IVF SCH ×2 (10:49→20:48)
[2017-02-19] MEDS: ERTAPENEM 1 GM in SODIUM CHLORIDE 0.9% 50 ML IV SCH (10:49)
[2017-02-19] MEDS: LIDOCAINE/PRILOCAINE CRM W/TEG 5GM TP PRN (10:50)
[2017-02-19 12:58] VITALS: BP 140/69
[2017-02-19 14:18] VITALS: BP 131/71
[2017-02-19 18:53] VITALS: BP 133/55
[2017-02-19] MEDS ORDERED: POTASSIUM CHLORIDE 20 MEQ TAB.ER.PRT PO ONE (19:00)
[2017-02-20] MEDS: HYDROcodone/APAP 5/325 TABLET PO PRN ×6 (00:02→22:26)
[2017-02-20 02:28] VITALS: BP 124/59
[2017-02-20 04:53] LABS: BLOOD UREA NITROGEN 31 mg/dL (7-18)
[2017-02-20] MEDS: HEPARIN 5,000 UNITS/ML, 1ML SQ SCH ×3 (06:20→21:02)
[2017-02-20 06:52] VITALS: BP 117/59
[2017-02-20] MEDS: INSULIN ASPART 100 UNITS/ML, PEN SQ-INSULIN SCH ×4 (08:49→21:00)
[2017-02-20] MEDS: INSULIN DETEMIR 100 UNITS/ML, PEN SQ-INSULIN SCH ×2 (08:55→20:59)
[2017-02-20] MEDS: AMLODIPINE 5 MG TABLET PO SCH ×2 (08:55→21:00)
[2017-02-20] MEDS: FUROSEMIDE 40 MG TABLET PO SCH (08:56)
[2017-02-20] MEDS: SODIUM CHLORIDE FLUSH 10ML SYR IVF SCH ×2 (08:56→21:01)
[2017-02-20] MEDS: ERGOCALCIFEROL 50,000 UNIT CAPSULE PO SCH (09:02)
[2017-02-20] MEDS: ERTAPENEM 1 GM in SODIUM CHLORIDE 0.9% 50 ML IV SCH (12:35)
[2017-02-20 13:48] VITALS: BP 137/60
[2017-02-20] MEDS: CALCIUM CARBONATE 500 MG TAB.CHEW PO PRN (15:58)
[2017-02-20 20:30] VITALS: BP 130/66
[2017-02-21 02:53] VITALS: BP 124/60
[2017-02-21] MEDS: HYDROcodone/APAP 5/325 TABLET PO PRN ×5 (03:01→21:29)
[2017-02-21 06:31] VITALS: BP 126/65
[2017-02-21] MEDS: HEPARIN 5,000 UNITS/ML, 1ML SQ SCH ×3 (06:34→21:29)
[2017-02-21] MEDS: INSULIN ASPART 100 UNITS/ML, PEN SQ-INSULIN SCH ×4 (09:28→21:00)
[2017-02-21] MEDS: FUROSEMIDE 40 MG TABLET PO SCH (10:37)
[2017-02-21] MEDS: AMLODIPINE 5 MG TABLET PO SCH ×2 (10:37→21:28)
[2017-02-21] MEDS: SODIUM CHLORIDE FLUSH 10ML SYR IVF SCH ×2 (10:38→21:28)
[2017-02-21] MEDS: INSULIN DETEMIR 100 UNITS/ML, PEN SQ-INSULIN SCH ×2 (10:39→21:28)
[2017-02-21] MEDS: ERTAPENEM 1 GM in SODIUM CHLORIDE 0.9% 50 ML IV SCH (11:36)
[2017-02-21 14:43] VITALS: BP 138/70
[2017-02-21 19:38] VITALS: BP 110/55
[2017-02-21 20:12] VITALS: BP 145/77
[2017-02-22 03:00] VITALS: BP 132/75
[2017-02-22] MEDS: HYDROcodone/APAP 5/325 TABLET PO PRN ×4 (03:45→21:04)
[2017-02-22 04:14] LABS: BLOOD UREA NITROGEN 32 mg/dL (7-18)
[2017-02-22] MEDS: HEPARIN 5,000 UNITS/ML, 1ML SQ SCH ×3 (06:13→22:05)
[2017-02-22] MEDS: INSULIN ASPART 100 UNITS/ML, PEN SQ-INSULIN SCH ×4 (07:00→21:05)
[2017-02-22 07:06] VITALS: BP 116/68
[2017-02-22] MEDS: SODIUM CHLORIDE FLUSH 10ML SYR IVF SCH ×2 (09:00→21:03)
[2017-02-22] MEDS: AMLODIPINE 5 MG TABLET PO SCH ×2 (10:54→21:04)
[2017-02-22] MEDS: INSULIN DETEMIR 100 UNITS/ML, PEN SQ-INSULIN SCH ×2 (10:55→21:04)
[2017-02-22] MEDS: ERTAPENEM 1 GM in SODIUM CHLORIDE 0.9% 50 ML IV SCH (11:34)
[2017-02-22 12:32] VITALS: BP 119/67
[2017-02-22] MEDS: LIDOCAINE/PRILOCAINE CRM W/TEG 5GM TP PRN (17:13)
[2017-02-22 20:00] VITALS: BP 115/65
[2017-02-23 02:22] VITALS: BP 112/68
[2017-02-23] MEDS: HYDROcodone/APAP 5/325 TABLET PO PRN ×4 (04:39→21:28)
[2017-02-23 05:31] LABS: BLOOD UREA NITROGEN 35 mg/dL (7-18)
[2017-02-23] MEDS: HEPARIN 5,000 UNITS/ML, 1ML SQ SCH ×2 (05:39→16:03)
[2017-02-23] MEDS: INSULIN ASPART 100 UNITS/ML, PEN SQ-INSULIN SCH ×4 (07:00→20:20)
[2017-02-23 08:21] VITALS: BP 112/65
[2017-02-23] MEDS ORDERED: FUROSEMIDE 40 MG TABLET PO SCH (09:00)
[2017-02-23] MEDS: ERGOCALCIFEROL 50,000 UNIT CAPSULE PO SCH (09:47)
[2017-02-23] MEDS: AMLODIPINE 5 MG TABLET PO SCH ×2 (09:47→21:28)
[2017-02-23] MEDS: INSULIN DETEMIR 100 UNITS/ML, PEN SQ-INSULIN SCH ×2 (09:49→21:29)
[2017-02-23] MEDS: ERTAPENEM 1 GM in SODIUM CHLORIDE 0.9% 50 ML IV SCH (10:23)
[2017-02-23] MEDS: SODIUM CHLORIDE FLUSH 10ML SYR IVF SCH ×2 (10:23→21:29)
[2017-02-23 12:59] VITALS: BP 119/69
[2017-02-23] MEDS: LIDOCAINE/PRILOCAINE CRM W/TEG 5GM TP PRN (16:08)
[2017-02-23 19:03] VITALS: BP 108/65
[2017-02-24 01:27] VITALS: BP 106/65
[2017-02-24] MEDS: HYDROcodone/APAP 5/325 TABLET PO PRN ×4 (04:49→21:46)
[2017-02-24] MEDS: HEPARIN 5,000 UNITS/ML, 1ML SQ SCH ×4 (05:53→21:47)
[2017-02-24] MEDS: INSULIN ASPART 100 UNITS/ML, PEN SQ-INSULIN SCH ×4 (07:00→21:48)
[2017-02-24 07:45] VITALS: BP 122/72
[2017-02-24] MEDS: INSULIN DETEMIR 100 UNITS/ML, PEN SQ-INSULIN SCH ×2 (08:03→21:02)
[2017-02-24] MEDS: SODIUM CHLORIDE FLUSH 10ML SYR IVF SCH ×2 (08:03→21:45)
[2017-02-24] MEDS: AMLODIPINE 5 MG TABLET PO SCH ×2 (08:05→21:45)
[2017-02-24] MEDS: ERTAPENEM 1 GM in SODIUM CHLORIDE 0.9% 50 ML IV SCH (09:38)
[2017-02-24 10:22] LABS: BLOOD UREA NITROGEN 33 mg/dL (7-18)
[2017-02-24 14:19] VITALS: BP 115/70
[2017-02-24 19:18] VITALS: BP 119/67
[2017-02-25 01:45] VITALS: BP 104/67
[2017-02-25] MEDS: HYDROcodone/APAP 5/325 TABLET PO PRN ×3 (04:26→15:13)
[2017-02-25] MEDS: LIDOCAINE/PRILOCAINE CRM W/TEG 5GM TP PRN ×2 (04:27→15:14)
[2017-02-25] MEDS: HEPARIN 5,000 UNITS/ML, 1ML SQ SCH ×2 (06:33→15:13)
[2017-02-25] MEDS: INSULIN ASPART 100 UNITS/ML, PEN SQ-INSULIN SCH ×3 (07:00→16:37)
[2017-02-25 07:06] LABS: BLOOD UREA NITROGEN 35 mg/dL (7-18)
[2017-02-25 07:54] VITALS: BP 128/76
[2017-02-25] MEDS: AMLODIPINE 5 MG TABLET PO SCH (08:08)
[2017-02-25] MEDS: INSULIN DETEMIR 100 UNITS/ML, PEN SQ-INSULIN SCH (08:09)
[2017-02-25] MEDS: SODIUM CHLORIDE FLUSH 10ML SYR IVF SCH (08:09)
[2017-02-25] MEDS: ERTAPENEM 1 GM in SODIUM CHLORIDE 0.9% 50 ML IV SCH (11:01)
[2017-02-25 14:24] VITALS: BP 131/72
[2017-02-25] MEDS ORDERED: INSU100I18 SQ-INSULIN (16:09)
[2017-02-25] MEDS ORDERED: LIDO30CR TP (16:09)
[2017-02-25] MEDS ORDERED: INSU100I28 SQ-INSULIN (16:09)
[2017-02-25] MEDS ORDERED: ERGO500017 PO (16:09)
[2017-02-25] MEDS ORDERED: AMLO5TAB2 PO (16:09)
[2017-02-25] MEDS ORDERED: ERTA1VIA IV (16:43)
== END 2017-02-25 19:45 | disposition home health service (06) | DRG 871 ==
LOC: ED 14:13 → EDIP 17:08 → 4NOR 18:10 → 3NE 02-21 20:09
PROVIDERS: ADMIT Family Medicine; ATTEND Internal Medicine
PROC: 02HV33Z Insertion of Infusion Device into Superior Vena Cava, Percutaneous Approach (ICD-10-PCS; principal; 2017-02-06)
PROC: B5181ZA Fluoroscopy of Superior Vena Cava using Low Osmolar Contrast, Guidance (ICD-10-PCS; 2017-02-06)
PROC: B548ZZA Ultrasonography of Superior Vena Cava, Guidance (ICD-10-PCS; 2017-02-06)
DX: A41.89 Other specified sepsis (principal); E43 Unspecified severe protein-calorie malnutrition; E13.10 Other specified diabetes mellitus with ketoacidosis without coma; N17.0 Acute kidney failure with tubular necrosis; K61.1 Rectal abscess; Z68.41 Body mass index [BMI] 40.0-44.9, adult; E87.1 Hypo-osmolality and hyponatremia; L02.215 Cutaneous abscess of perineum; L03.315 Cellulitis of perineum; N76.4 Abscess of vulva; I82.619 Acute embolism and thrombosis of superficial veins of unspecified upper extremity; I13.10 Hypertensive heart and chronic kidney disease without heart failure, with stage 1 through stage 4 chronic kidney disease, or unspecified chronic kidney disease; E66.01 Morbid (severe) obesity due to excess calories; D64.9 Anemia, unspecified; E55.9 Vitamin D deficiency, unspecified; K76.0 Fatty (change of) liver, not elsewhere classified; T50.2X5A Adverse effect of carbonic-anhydrase inhibitors, benzothiadiazides and other diuretics, initial encounter; E87.6 Hypokalemia; E11.22 Type 2 diabetes mellitus with diabetic chronic kidney disease; N18.9 Chronic kidney disease, unspecified; K80.20 Calculus of gallbladder without cholecystitis without obstruction; Z87.891 Personal history of nicotine dependence; Z82.49 Family history of ischemic heart disease and other diseases of the circulatory system; Z91.19 Patient's noncompliance with other medical treatment and regimen; Z80.3 Family history of malignant neoplasm of breast; Z79.4 Long term (current) use of insulin
CPT/HCPCS: 36415; 36569; 71010; 72193; 76700; 76857; 76937; 77001; 80048; 80053; 80061; 80069; 80074; 81001; 82010; 82040; 82306; 82330; 82570; 82728; 82784; 82803; 82962; 83036; 83520; 83540; 83550; 83605; 83690; 83735; 83970; 84100; 84155; 84156; 84165; 84166; 84439; 84443; 84550; 85025; 85610; 85651; 86038; 86039; 86140; 86160; 86256; 86334; 86335; 87040; 87070; 87081; 87086; 87106; 87205; 87324; 93005; 93306; 96365; 96375; 96376; J0295; J0712; J1335; J1644; J1650; J1815; J2020; J2405; J2543; J3370; P9047; Q9967; C1751; J1940; J3475; J3490; J7030; J7040; S0028

== ENCOUNTER 2018-02-24 09:47 | Inpatient (IN) | payer BC, OTHER ==
[~2018-02-24] VITALS: Ht 165.1 cm; Wt 88.6 kg
[~2018-02-24 09:47] MED LIST: ALBU18HF INH; AMLO5TAB2 PO; ERGO500017 PO; ERTA1VIA IV; GUAI200T3 PO; INSU100I18 SQ-INSULIN; INSU100I28 SQ-INSULIN; LIDO30CR TP
[2018-02-24] MEDS ORDERED: ONDANSETRON ODT 4 MG ONE ×2 (10:22→16:53)
[2018-02-24] MEDS ORDERED: FAMOTIDINE 20 MG/2 ML ONE (10:23)
[2018-02-24] MEDS ORDERED: MAALOX/HYOSCYAMINE/LIDOCAINE 45 ML BTL ONE (10:23)
[2018-02-24] MEDS ORDERED: MAALOX/HYOSCYAMINE/LIDOCAINE 45 ML BTL PO ONE (10:30)
[2018-02-24] MEDS ORDERED: SODIUM CHLORIDE 0.9% 1,000ML IVBOLUS ONE (10:30)
[2018-02-24] MEDS ORDERED: SODIUM CHLORIDE FLUSH 10ML SYR IVF ONE (10:30)
[2018-02-24] MEDS ORDERED: FAMOTIDINE 20 MG/2 ML IVP ONE (10:30)
[2018-02-24] MEDS ORDERED: ONDANSETRON ODT 4 MG PO ONE (10:30)
[2018-02-24 10:43] LABS: BASOPHILS # (AUTO) 0.02 x10^3/uL (0-0.1); BASOPHILS % (AUTO) 0 % (0-1); EOSINOPHILS % (AUTO) 0 % (1-7); LYMPHOCYTES # (AUTO) 0.76 x10^3/uL (1-3.4); LYMPHOCYTES % (AUTO) 6 % (22-44); MD NO; MEAN CORPUSCULAR HEMOGLOBIN 28.2 pg (27.0-34.8); MEAN CORPUSCULAR HGB CONC 33.4 g/dL (32.4-35.8); MEAN CORPUSCULAR VOLUME 84.5 fL (80-100); MEAN PLATELET VOLUME 9.1 fL (7.4-10.4); MONOCYTES # (AUTO) 0.34 x10^3/uL (0.2-0.8); MONOCYTES % (AUTO) 3 % (2-9); NEUTROPHILS # (AUTO) 12.05 x10^3/uL (1.8-6.8); NEUTROPHILS % (AUTO) 92 % (42-75); PLATELET COUNT 287 x10^3/uL (130-400); RED BLOOD COUNT 5.08 x10^6/uL (3.82-5.3); RED CELL DISTRIBUTION WIDTH 14.4 % (9.6-15.2)
[2018-02-24 10:53] LABS: ALBUMIN 3.1 g/dL (3.4-5.0); ANION GAP 13 mmol/L (5-15); CALCIUM 8.7 mg/dL (8.5-10.1); CHLORIDE 101 mmol/L (98-107)
[2018-02-24 10:56] LABS: ALANINE AMINOTRANSFERASE 23 U/L (12-78); CREATININE 1.53 mg/dL (0.55-1.02)
[2018-02-24 10:57] LABS: MICROSCOPIC INDICATED
[2018-02-24 11:01] LABS: ALKALINE PHOSPHATASE 120 U/L (45-117); BILIRUBIN,TOTAL 0.9 mg/dL (0.2-1.0); TOTAL PROTEIN 7.7 g/dL (6.4-8.2)
[2018-02-24 11:04] LABS: TROPONIN I 0.304 ng/mL (0.000-0.045)
[2018-02-24 11:07] LABS: ACETONE, SERUM Moderate(40mg/dL) mg/dL (Negative)
[2018-02-24 11:09] LABS: CULTURE INDICATED? YES
[2018-02-24] MEDS ORDERED: ASPIRIN 81 MG TABLET CHEW PO ONE (11:30)
[2018-02-24] MEDS ORDERED: METOCLOPRAMIDE 5 MG/ML, 2ML ONE (12:03)
[2018-02-24] MEDS ORDERED: ASPIRIN 81 MG TABLET CHEW ONE (12:03)
[2018-02-24] MEDS ORDERED: METOCLOPRAMIDE 5 MG/ML, 2ML IVPush ONE (12:30)
[2018-02-24 12:32] LABS: TROPONIN I 0.282 ng/mL (0.000-0.045)
[2018-02-24] MEDS ORDERED: CEFOTETAN PMX 1GM/50ML 50 ML IV ONE (13:30)
[2018-02-24] MEDS ORDERED: LABETALOL 5MG/ML, 20ML IVPush PRN (14:00)
[2018-02-24] MEDS ORDERED: BISACODYL 10 MG SUPP PR PRN (14:00)
[2018-02-24] MEDS ORDERED: POLYETHYLENE GLYCOL 17 GM PACKET PO PRN (14:00)
[2018-02-24] MEDS ORDERED: DOCUSATE 100 MG CAPSULE PO PRN (14:00)
[2018-02-24] MEDS ORDERED: CEFOTETAN PMX 1GM/50ML 50 ML ONE (14:04)
[2018-02-24] MEDS ORDERED: MORPHINE SULFATE 4 MG/ML, 1ML ONE (14:13)
[2018-02-24] MEDS: morphine SULFATE 10 MG/ML, 1ML IVPush PRN ×3 (14:17→21:40)
[2018-02-24] MEDS ORDERED: REGADENOSON 0.4 MG/5 ML SYRINGE ONE (14:34)
[2018-02-24 16:39] VITALS: BP 180/85
[2018-02-24 16:49] LABS: TROPONIN I 0.234 ng/mL (0.000-0.045)
[2018-02-24] MEDS ORDERED: CEFTRIAXONE PMX 2GM/50ML 50 ML IV SCH (17:00)
[2018-02-24] MEDS: ONDANSETRON 2MG/ML, 2ML IVPush PRN ×2 (17:02→21:32)
[2018-02-24] MEDS: METRONIDAZOLE PMX 500MG/100ML 100 ML IV SCH (17:03)
[2018-02-24] MEDS: NS + 20MEQ KCL 1,000 ML IV SCH (17:03)
[2018-02-24] MEDS: INSULIN LISPRO 100 UNITS/ML, PEN SQ-INSULIN SCH ×2 (17:41→21:43)
[2018-02-24 19:13] VITALS: BP 128/72
[2018-02-24] MEDS ORDERED: ONDANSETRON 2MG/ML, 2ML ONE (21:24)
[2018-02-24 22:29] LABS: TROPONIN I 0.141 ng/mL (0.000-0.045)
[2018-02-25 01:42] VITALS: BP 107/73
[2018-02-25] MEDS: METRONIDAZOLE PMX 500MG/100ML 100 ML IV SCH ×2 (02:04→10:08)
[2018-02-25] MEDS: morphine SULFATE 10 MG/ML, 1ML IVPush PRN ×2 (02:05→06:29)
[2018-02-25] MEDS: NS + 20MEQ KCL 1,000 ML IV SCH ×2 (04:44→14:04)
[2018-02-25 05:17] LABS: MEAN CORPUSCULAR HEMOGLOBIN 28.8 pg (27.0-34.8); MEAN CORPUSCULAR HGB CONC 33.6 g/dL (32.4-35.8); MEAN CORPUSCULAR VOLUME 85.8 fL (80-100); MEAN PLATELET VOLUME 9.2 fL (7.4-10.4); PLATELET COUNT 274 x10^3/uL (130-400); RED CELL DISTRIBUTION WIDTH 15.3 % (9.6-15.2)
[2018-02-25 05:21] LABS: CHLORIDE 106 mmol/L (98-107)
[2018-02-25 05:28] LABS: ALANINE AMINOTRANSFERASE 19 U/L (12-78); ALBUMIN 2.5 g/dL (3.4-5.0); ALKALINE PHOSPHATASE 100 U/L (45-117); ANION GAP 8 mmol/L (5-15); BILIRUBIN,TOTAL 0.7 mg/dL (0.2-1.0); CALCIUM 8.6 mg/dL (8.5-10.1); CREATININE 1.94 mg/dL (0.55-1.02); TOTAL PROTEIN 6.6 g/dL (6.4-8.2)
[2018-02-25 05:51] LABS: MD YES
[2018-02-25 05:52] LABS: <PLATELET ESTIMATE> ADEQUATE; <PLT MORPHOLOGY> NORMAL PLT MORPH; <RBC MORPHOLOGY> NORMAL; BAND#(MANUAL) 0.42 x10^3/uL; BANDS%(MANUAL) 2 % (0-7); LYMPH#(MANUAL) 3.12 x10^3/uL (1-3.4); LYMPHS% (MANUAL) 15 % (22-44); MONOS#(MANUAL) 0.42 x10^3/uL (0.3-2.7); MONOS% (MANUAL) 2 % (2-9); SEG#(MANUAL) 16.85 x10^3/uL (1.8-6.8); SEGS% (MANUAL) 81 % (42-75)
[2018-02-25] MEDS ORDERED: BUPIVACAINE/PF 0.5% ONE (06:55)
[2018-02-25] MEDS ORDERED: EPINEPHRINE 1 MG/ML, 1ML ONE (06:55)
[2018-02-25] MEDS ORDERED: SODIUM CHLORIDE 0.9% 1,000ML IVBOLUS ONE (07:00)
[2018-02-25 07:15] VITALS: BP 101/68
[2018-02-25] MEDS: INSULIN LISPRO 100 UNITS/ML, PEN SQ-INSULIN SCH ×4 (08:13→22:02)
[2018-02-25] MEDS ORDERED: ACETAMINOPHEN 500 MG TABLET PO ONE (09:00)
[2018-02-25] MEDS ORDERED: SCOPOLAMINE PATCH, 1.5MG PATCH.TD72 TD ONE (09:00)
[2018-02-25] MEDS ORDERED: ONDANSETRON ODT 8 MG PO ONE (09:00)
[2018-02-25] MEDS ORDERED: OxyconTIN ER 20 MG TAB.ER PO ONE (09:00)
[2018-02-25] MEDS ORDERED: MIDAZOLAM 1 MG/ML, 2ML ONE (09:22)
[2018-02-25] MEDS ORDERED: FENTANYL PF 250 MCG/5ML ONE (09:22)
[2018-02-25] MEDS ORDERED: PROPOFOL 10 MG/ML, 20ML ONE (09:23)
[2018-02-25] MEDS ORDERED: CEFOTETAN PMX 2GM/50ML 50 ML ONE (09:23)
[2018-02-25] MEDS ORDERED: NEOSTIGMINE 1 MG/ML, 10ML ONE (09:25)
[2018-02-25] MEDS ORDERED: GLYCOPYRROLATE 0.4 MG/2 ML, 2ML ONE (09:25)
[2018-02-25] MEDS ORDERED: ROCURONIUM 10MG/ML,5ML ONE (09:25)
[2018-02-25] MEDS ORDERED: PHENYLEPHRINE 10 MG/ML ONE (11:18)
[2018-02-25] MEDS ORDERED: DEXAMETHASONE 4 MG/ML, 1ML ONE ×2 (11:23)
[2018-02-25] MEDS ORDERED: ACETAMINOPHEN 325 MG TABLET PO PRN (11:30)
[2018-02-25] MEDS ORDERED: PROMETHAZINE 25 MG/ML, 1ML IV PRN (11:30)
[2018-02-25] MEDS ORDERED: LABETALOL 5MG/ML, 20ML IV PRN (11:30)
[2018-02-25] MEDS ORDERED: PROMETHAZINE 12.5 MG SUPP PR PRN (11:30)
[2018-02-25] MEDS ORDERED: ONDANSETRON 2MG/ML, 2ML IVPush PRN (11:30)
[2018-02-25] MEDS ORDERED: morphine SULFATE 10 MG/ML, 1ML IV PRN ×2 (11:30→14:30)
[2018-02-25] MEDS ORDERED: OXYcodone 5 MG/5 ML ORAL.SOL UDC PO PRN (11:30)
[2018-02-25] MEDS ORDERED: hydrALAzine 20 MG/ML, 1ML IV PRN (11:30)
[2018-02-25] MEDS ORDERED: HYDROmorphone 1 MG/ML, 1ML IV PRN (11:30)
[2018-02-25] MEDS ORDERED: MEPERIDINE/PF 25MG/0.5ML IVPush PRN (11:30)
[2018-02-25] MEDS ORDERED: THROMBIN 5,000 UNIT VIAL TP ONE (11:54)
[2018-02-25] MEDS ORDERED: ACETAMINOPHEN 650 MG/20.3 ML UDC ONE (12:34)
[2018-02-25] MEDS ORDERED: OXYcodone 5 MG/5 ML ORAL.SOL UDC ONE ×2 (12:34→12:45)
[2018-02-25] MEDS ORDERED: ONDANSETRON 2MG/ML, 2ML ONE (12:36)
[2018-02-25] MEDS ORDERED: PROMETHAZINE 25 MG/ML, 1ML ONE (12:47)
[2018-02-25] MEDS ORDERED: FENTANYL PF 100 MCG/2ML ONE (13:01)
[2018-02-25] MEDS: FENTANYL PF 100 MCG/2ML IV PRN ×2 (13:03→13:22)
[2018-02-25 14:00] VITALS: BP 155/95
[2018-02-25] MEDS ORDERED: ONDANSETRON 2MG/ML, 2ML IV PRN (14:30)
[2018-02-25] MEDS ORDERED: POTASSIUM CHLORIDE 20 MEQ in D5%-0.45% NACL 1,000 ML IV SCH (14:30)
[2018-02-25] MEDS ORDERED: DIPHENHYDRAMINE 25 MG CAPSULE PO PRN (14:30)
[2018-02-25] MEDS ORDERED: LORazepam 1MG TABLET PO PRN (14:30)
[2018-02-25] MEDS ORDERED: LORazepam 2 MG/ML, 1ML IV PRN (14:30)
[2018-02-25] MEDS ORDERED: ONDANSETRON ODT 4 MG PO PRN (14:30)
[2018-02-25] MEDS ORDERED: DIPHENHYDRAMINE 50 MG/ML, 1ML IV PRN (14:30)
[2018-02-25] MEDS: OXYcodone/APAP 5/325MG TABLET PO PRN ×3 (17:11→23:05)
[2018-02-25 18:20] VITALS: BP 175/93
[2018-02-25 18:54] VITALS: BP 158/84
[2018-02-26 01:07] VITALS: BP 145/77
[2018-02-26 03:15] VITALS: BP 173/78
[2018-02-26 04:03] VITALS: BP 131/78
[2018-02-26 05:11] LABS: BASOPHILS % (AUTO) 0 % (0-1); EOSINOPHILS % (AUTO) 0 % (1-7); LYMPHOCYTES # (AUTO) 1.01 x10^3/uL (1-3.4); LYMPHOCYTES % (AUTO) 7 % (22-44); MD NO; MEAN CORPUSCULAR HEMOGLOBIN 28.8 pg (27.0-34.8); MEAN CORPUSCULAR HGB CONC 33.2 g/dL (32.4-35.8); MEAN CORPUSCULAR VOLUME 86.8 fL (80-100); MEAN PLATELET VOLUME 9.2 fL (7.4-10.4); MONOCYTES # (AUTO) 0.71 x10^3/uL (0.2-0.8); MONOCYTES % (AUTO) 5 % (2-9); NEUTROPHILS # (AUTO) 12.43 x10^3/uL (1.8-6.8); NEUTROPHILS % (AUTO) 88 % (42-75); PLATELET COUNT 195 x10^3/uL (130-400); RED BLOOD COUNT 3.93 x10^6/uL (3.82-5.3); RED CELL DISTRIBUTION WIDTH 14.4 % (9.6-15.2)
[2018-02-26] MEDS: OXYcodone/APAP 5/325MG TABLET PO PRN ×4 (05:14→19:47)
[2018-02-26 05:22] LABS: ANION GAP 8 mmol/L (5-15); CALCIUM 8.3 mg/dL (8.5-10.1); CHLORIDE 104 mmol/L (98-107)
[2018-02-26] MEDS: INSULIN LISPRO 100 UNITS/ML, PEN SQ-INSULIN SCH ×4 (08:15→20:25)
[2018-02-26] MEDS ORDERED: ENOXAPARIN 40 MG/0.4 ML SQ SCH (09:00)
[2018-02-26] MEDS ORDERED: ENOXAPARIN 30 MG/0.3 ML SQ SCH (09:00)
[2018-02-26 09:09] VITALS: BP 139/78
[2018-02-26] MEDS: INSULIN GLARGINE 100 UNITS/ML, PEN SQ-INSULIN SCH ×2 (09:24→20:26)
[2018-02-26 14:52] VITALS: BP 127/76
[2018-02-26 19:27] VITALS: BP 113/70
[2018-02-27] MEDS: OXYcodone/APAP 5/325MG TABLET PO PRN ×3 (00:02→09:04)
[2018-02-27 01:51] VITALS: BP 123/78
[2018-02-27 05:06] LABS: BASOPHILS # (AUTO) 0.04 x10^3/uL (0-0.1); BASOPHILS % (AUTO) 0 % (0-1); EOSINOPHILS # (AUTO) 0.04 x10^3/uL (0-0.4); EOSINOPHILS % (AUTO) 0 % (1-7); LYMPHOCYTES # (AUTO) 1.86 x10^3/uL (1-3.4); LYMPHOCYTES % (AUTO) 17 % (22-44); MD NO; MEAN CORPUSCULAR HEMOGLOBIN 28.6 pg (27.0-34.8); MEAN CORPUSCULAR HGB CONC 33.2 g/dL (32.4-35.8); MEAN CORPUSCULAR VOLUME 86.1 fL (80-100); MEAN PLATELET VOLUME 9.3 fL (7.4-10.4); MONOCYTES # (AUTO) 0.57 x10^3/uL (0.2-0.8); MONOCYTES % (AUTO) 5 % (2-9); NEUTROPHILS # (AUTO) 8.39 x10^3/uL (1.8-6.8); NEUTROPHILS % (AUTO) 77 % (42-75); PLATELET COUNT 192 x10^3/uL (130-400); RED BLOOD COUNT 4.04 x10^6/uL (3.82-5.3)
[2018-02-27 05:18] LABS: ANION GAP 8 mmol/L (5-15); CALCIUM 8.2 mg/dL (8.5-10.1); CHLORIDE 101 mmol/L (98-107); CREATININE 1.75 mg/dL (0.55-1.02)
[2018-02-27 07:45] VITALS: BP 146/86
[2018-02-27] MEDS ORDERED: POLY17PO5 PO (08:58)
[2018-02-27] MEDS ORDERED: OXYC1TAB7 PO (08:58)
[2018-02-27] MEDS ORDERED: ENOXAPARIN 40 MG/0.4 ML SQ SCH (09:00)
[2018-02-27] MEDS: INSULIN GLARGINE 100 UNITS/ML, PEN SQ-INSULIN SCH (09:04)
[2018-02-27] MEDS: INSULIN LISPRO 100 UNITS/ML, PEN SQ-INSULIN SCH ×2 (09:05→11:30)
[2018-02-27 13:56] VITALS: BP 163/65
== END 2018-02-27 12:30 | disposition home or self-care (01) | DRG 417 ==
LOC: ED 12:15 → EDIP 13:44 → 4WST 16:12
PROVIDERS: ADMIT Internal Medicine Pulmonary Disease; ATTEND Internal Medicine Pulmonary Disease
PROC: 0FT44ZZ Resection of Gallbladder, Percutaneous Endoscopic Approach (ICD-10-PCS; principal; 2018-02-25 11:00)
DX: K81.0 Acute cholecystitis (principal); N17.0 Acute kidney failure with tubular necrosis; E44.0 Moderate protein-calorie malnutrition; I13.0 Hypertensive heart and chronic kidney disease with heart failure and stage 1 through stage 4 chronic kidney disease, or unspecified chronic kidney disease; N18.4 Chronic kidney disease, stage 4 (severe); I50.9 Heart failure, unspecified; E11.22 Type 2 diabetes mellitus with diabetic chronic kidney disease; K76.0 Fatty (change of) liver, not elsewhere classified; E11.65 Type 2 diabetes mellitus with hyperglycemia; E78.5 Hyperlipidemia, unspecified; F12.90 Cannabis use, unspecified, uncomplicated; Z79.4 Long term (current) use of insulin; Z79.82 Long term (current) use of aspirin; Z79.899 Other long term (current) drug therapy; Z87.891 Personal history of nicotine dependence; Z68.32 Body mass index [BMI] 32.0-32.9, adult
CPT/HCPCS: 36415; 74021; 76700; 76770; 78452; 80048; 80053; 81001; 82010; 82040; 82436; 82570; 82800; 82962; 83690; 83735; 84133; 84300; 84484; 85025; 87086; 88304; 93005; 93017; 96361; 96374; 96375; 99285; J0171; J0696; J1100; J1650; J2250; J2405; J2704; J2710; J2785; J3010; J3480; J3490; Q0162; A9502; C9898; J1815; J2270; J2370; J2765; J7030; S0028; S0074

== ENCOUNTER 2019-01-31 10:01 | Emergency (ER) | payer BC ==
[~2019-01-31] VITALS: Ht 167.6 cm; Wt 124.0 kg
[~2019-01-31 10:01] MED LIST changes: +AMLO-150 PO; -AMLO5TAB2 PO; +OXYC1TAB7 PO; +POLY17PO5 PO
--- NOTE | 2019-01-31 10:42 | NUR ---
pt to ed for chonic abd pain with associated nausea and diarrhea since February 2018. connected to monitors. htn, all other vss on ra. edmd to bedside for assessment. awaiting further orders.
[2019-01-31 11:21] LABS: BASOPHILS # (AUTO) 0.05 x10^3/uL (0-0.1); BASOPHILS % (AUTO) 1 % (0-1); EOSINOPHILS # (AUTO) 0.02 x10^3/uL (0-0.4); EOSINOPHILS % (AUTO) 0 % (1-7); LYMPHOCYTES # (AUTO) 1.52 x10^3/uL (1-3.4); LYMPHOCYTES % (AUTO) 15 % (22-44); MD NO; MEAN CORPUSCULAR HEMOGLOBIN 28.3 pg (27.0-34.8); MEAN CORPUSCULAR HGB CONC 32.9 g/dL (32.4-35.8); MEAN CORPUSCULAR VOLUME 86.2 fL (80-100); MONOCYTES # (AUTO) 0.37 x10^3/uL (0.2-0.8); MONOCYTES % (AUTO) 4 % (2-9); NEUTROPHILS # (AUTO) 8.38 x10^3/uL (1.8-6.8); NEUTROPHILS % (AUTO) 81 % (42-75); PLATELET COUNT 251 x10^3/uL (130-400); RED BLOOD COUNT 4.98 x10^6/uL (3.82-5.3); RED CELL DISTRIBUTION WIDTH 13.9 % (9.6-15.2)
[2019-01-31 11:31] LABS: ALBUMIN 2.9 g/dL (3.4-5.0); ANION GAP 7 mmol/L (5-15); CALCIUM 8.9 mg/dL (8.5-10.1); CHLORIDE 110 mmol/L (98-107)
[2019-01-31 11:42] LABS: ALANINE AMINOTRANSFERASE 34 U/L (12-78); ALKALINE PHOSPHATASE 120 U/L (45-117); BILIRUBIN,TOTAL 0.4 mg/dL (0.2-1.0); CREATININE 1.19 mg/dL (0.55-1.02); FREE T4 (FREE THYROXINE) 0.99 ng/dL (0.76-1.46); TOTAL PROTEIN 6.6 g/dL (6.4-8.2)
[2019-01-31 11:57] VITALS: BP 184/106
--- NOTE | 2019-01-31 11:58 | NUR ---
pt resting in room with family at bedside. no needs expressed. pt unable to stool. all other results back.
== END 2019-01-31 13:20 | disposition home or self-care (01) ==
LOC: ED 12:45
DX: R19.7 Diarrhea, unspecified (principal); I11.0 Hypertensive heart disease with heart failure; I50.9 Heart failure, unspecified; E11.9 Type 2 diabetes mellitus without complications; Z90.49 Acquired absence of other specified parts of digestive tract
CPT/HCPCS: 36415; 74021; 80053; 83690; 84439; 84443; 85025; 99284